=== PATIENT | male | born 1975 | race Two or more races ===

== ENCOUNTER 2019-03-28 00:50 | Emergency (ER) | payer OTHER ==
[~2019-03-28] VITALS: Ht 175.3 cm; Wt 86.2 kg
[2019-03-28] MEDS ORDERED: ORPHENADRINE C100 MG PO (03:29)
[2019-03-28] MEDS ORDERED: KETO10TA2 PO (03:29)
== END 2019-03-28 03:38 | disposition home or self-care (01) ==
LOC: ER 00:50
DX: S46.811A Strain of other muscles, fascia and tendons at shoulder and upper arm level, right arm, initial encounter (principal); S46.812A Strain of other muscles, fascia and tendons at shoulder and upper arm level, left arm, initial encounter; V49.9XXA Car occupant (driver) (passenger) injured in unspecified traffic accident, initial encounter; Y93.89 Activity, other specified; Y92.488 Other paved roadways as the place of occurrence of the external cause; Y99.8 Other external cause status

== ENCOUNTER 2021-04-15 18:48 | Emergency (ER) | payer OTHER ==
[~2021-04-15] VITALS: Ht 175.3 cm; Wt 90.7 kg
[~2021-04-15 18:48] MED LIST: KETO10TA2 PO; ORPHENADRINE C100 MG PO
[2021-04-15] MEDS ORDERED: NORFLEX100MG PO (21:45)
[2021-04-15] MEDS ORDERED: KETO10TA2 PO (21:45)
== END 2021-04-15 22:00 | disposition home or self-care (01) ==
LOC: ER 18:48
DX: M62.830 Muscle spasm of back (principal)